=== PATIENT | male | born 1985 | race Two or more races ===

== ENCOUNTER 2016-05-23 19:31 | Emergency (ER) | payer OTHER ==
[~2016-05-23] VITALS: Ht 177.8 cm; Wt 78.9 kg
[2016-05-23 22:10] VITALS: BP 141/97
[2016-05-23] MEDS ORDERED: LIDOCAINE 1% HCL (LOCAL ANESTH.) INJ 20ML MDV IJ ONE (22:15)
[2016-05-23] MEDS ORDERED: NEOMYCIN-BACITRACIN-POLYM UNITDOSE PKG TOP OINT TOP ONE (22:30)
== END 2016-05-23 22:35 | disposition home or self-care (01) ==
LOC: EDBD 19:36 → ER 19:36
DX: S61.511A Laceration without foreign body of right wrist, initial encounter (principal); W26.0XXA Contact with knife, initial encounter; Y93.G3 Activity, cooking and baking; Y99.8 Other external cause status; Y92.89 Other specified places as the place of occurrence of the external cause
CPT/HCPCS: 12002; 99283; J2001

== ENCOUNTER 2024-01-26 00:27 | Emergency (ER) | payer MEDICAID, OTHER ==
[~2024-01-26] VITALS: Ht 180.3 cm; Wt 77.1 kg
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
--- NOTE | 2024-01-26 01:46 | DVH ---
EXAM: CT HEAD WITHOUT CONTRAST HISTORY: trauma COMPARISON: None TECHNIQUE: Axial images were obtained and reformatted in coronal and sagittal planes. All CT scans at this medical facility are performed using dose modulation techniques as appropriate t o a performed exam including the following: Automated exposure control was utilized; adjustment of th e MA and/or KV according to patient size; and use of iterative reconstruction technique. CT Dose: CTDI volume is 52.37 mGy. Dose-length product is 839.64 mGy*cm FINDINGS: Supratentorial Region: No evidence for large acute territorial ischemia. No intracranial hemorrhage is noted. There is a 2.6 cm arachnoid cyst in the anterior right middle cranial fossa. Posterior Fossa: No acute abnormality. Brainstem: Unremarkable. Sellar/Suprasellar Region: Unremarkable. Ventricles, Cisterns, Sulci: Age-appropriate. Orbits: Unremarkable. Paranasal Sinuses: Unremarkable. Mastoid Air Cells: Unremarkable. Vasculature: Unremarkable. Bones/Soft Tissues: No acute abnormality. Other: None. IMPRESSION: No acute intracranial process.
[2024-01-26 02:41] VITALS: BP 129/74; PULSE 67; RESP 18; TEMP 98.7; O2SAT 98
[2024-01-26] MEDS: TETANUS-DIPTH-ACEL PERTUSSIS 0.5ML SYR Tdap IM ONE (02:57)
== END 2024-01-26 03:20 | disposition home or self-care (01) ==
LOC: ER 00:27 → EDBD 00:27 → ER 03:20
DX: S01.01XA Laceration without foreign body of scalp, initial encounter (principal); I10 Essential (primary) hypertension; Z23 Encounter for immunization; Y04.2XXA Assault by strike against or bumped into by another person, initial encounter; Y93.89 Activity, other specified; Y92.89 Other specified places as the place of occurrence of the external cause; Y99.8 Other external cause status
CPT/HCPCS: 12001; 70450; 90471; 90715